=== PATIENT | female | born 1980 | race Caucasian/White ===

== ENCOUNTER 2018-02-24 09:25 | Day surgery (SDC) | payer OTHER ==
[~2018-02-24 09:25] MED LIST: CEFAZOLIN 1 GM INJ; CEFAZOLIN 2 GM/50 ML (PMX) 50 ML IVPB; PHENYLephrine (100 MCG/ML) 5ML SYG
[2018-02-24 10:20] LABS: ADD MAN DIFF? NO
[2018-02-24 10:28] LABS: BASOPHILS % 0.7 % (0.0-2.0); EOSINOPHILS % 0.7 % (0.0-7.0); HEMATOCRIT 38.8 % (37.0-47.0); HEMOGLOBIN 13.2 g/dl (12.0-16.0); LYMPHOCYTES # 1.7 10^3/ul (0.8-2.9); LYMPHOCYTES % 29.5 % (15.0-51.0); MEAN CORPUSCULAR HEMOGLOBIN 29.2 pg (29.0-33.0); MEAN CORPUSCULAR VOLUME 85.8 fl (82.0-101.0); MEAN PLATELET VOLUME 9.8 fl (7.4-10.4); MONOCYTE # 0.4 10^3/ul (0.3-0.9); MONOCYTES % 6.6 % (0.0-11.0); NEUTROPHIL # 3.6 10^3/ul (1.6-7.5); NEUTROPHILS % 62.2 % (39.0-77.0); PLATELET COUNT 280 10^3/UL (140-415); RED BLOOD COUNT 4.52 10^6/ul (4.20-5.40); RED CELL DISTRIBUTION WIDTH 12.8 % (11.5-14.5)
[2018-02-24 10:28] LABS: WHITE BLOOD COUNT 5.8 10^3/ul (4.8-10.8)
[2018-02-24] MEDS ORDERED: ROCURONIUM 50 MG INJ (11:01)
[2018-02-24] MEDS ORDERED: PROPOFOL 20 ML (11:01)
[2018-02-24] MEDS ORDERED: MIDAZOLAM 1 MG/ML 2 ML INJ (11:01)
[2018-02-24] MEDS ORDERED: LIDOCAINE 2% (SDV) 5 ML INJ (11:01)
[2018-02-24] MEDS ORDERED: ROPIVACAINE 0.2% 20 ML VIAL (11:06)
[2018-02-24] MEDS ORDERED: ONDANSETRON 4 MG INJ (11:43)
[2018-02-24] MEDS ORDERED: DEXAMETHASONE 4 MG/ML 1 ML INJ (11:44)
[2018-02-24] MEDS ORDERED: FAMOTIDINE 20 MG INJ (11:44)
[2018-02-24] MEDS: BUPIVACAINE 0.5%/EPI (SDV) 30 ML INJ INJ (11:48)
[2018-02-24] MEDS ORDERED: SUGAMMADEX SODIUM 200 MG/2 ML VIAL IV (12:26)
[2018-02-24] MEDS: KETOROLAC 30 MG INJ IV (12:56)
[2018-02-24] MEDS ORDERED: ONDANSETRON 4 MG INJ IV (13:00)
[2018-02-24] MEDS ORDERED: KETOROLAC 30 MG INJ IV (13:00)
[2018-02-24] MEDS ORDERED: morphine 2 MG INJ IV (13:00)
[2018-02-24] MEDS: HYDROCODONE/APAP (5/325) TAB PO (13:28)
== END 2018-02-24 15:00 | disposition home or self-care (01) ==
LOC: SDS 09:25
DX: Z30.2 Encounter for sterilization (principal); N83.8 Other noninflammatory disorders of ovary, fallopian tube and broad ligament
CPT/HCPCS: 58670; 85025; 86850; 86900; 86901; 88304; 88305